=== PATIENT | female | born 1995 | race Caucasian/White ===

== ENCOUNTER 2018-10-03 19:04 | Emergency (ER) | payer SELFPAY ==
--- NOTE | 2018-10-03 19:07 | ERD ---
ER Documentation Chief Complaint Chief Complaint Opiate overdose HPI This is a 23-year-old female with a history of polysubstance abuse, opiate abuse with previous episodes of opiate overdose, cocaine abuse who is presenting with an opiate overdose. It is unclear if the patient used heroin or fentanyl. The patient became unresponsive and had an ambulance was called. EMS pulled the patient out of the car. She was given 2 doses of Narcan intranasally without response prior to inspector receiving arrival. Upon inspector receiving arrival, an IV was initiated and the patient was given Narcan through the IV after which she woke up. She was irritated and agitated and did not want to come to the hospital. Upon arrival to the ER, she demanded to leave. The patient is alert and oriented x3. The patient refused to answer any review of system questions. ROS All systems reviewed and are negative except as per history of present illness. Medications Home Meds Active Scripts Naloxone HCl nasal spray (Narcan 4 mg/0.1 mL nasal) 4 Mg [place], 4 MG NS .Q2-3MIN for OPIOID OVERDOSE, #2 SPRAY 0 Refills [place] 0.1 mL into one nostril. Repeat with second device into other nostril after 2-3 minutes if no or minimal response Prov:KEYLA JORGENSEN MD 10/03/18 PMhx/Soc Medical and Surgical Hx: pt denies Surgical Hx History of Surgery: No Hx Neurological Disorder: No Hx Respiratory Disorders: No Hx Cardiac Disorders: No Hx Psychiatric Problems: No Hx Miscellaneous Medical Probl: No Hx Alcohol Use: Yes Hx Substance Use: Yes Smoking Status: Unknown if ever smoked FmHx Patient refused to answer family history questions Physical Exam Physical Exam Objective: Patient refused vital sign assessment Const: No apparent distress, well-developed, well-nourished Head: Normocephalic, Atraumatic Eyes: Normal Conjunctiva. ENT: Normal External Ears, Nose and Mouth. Neck: No meningismus. Resp: Symmetric chest wall capone, no audible wheezes Cardio: Deferred Abd: Non distended Skin: No petechiae or rashes Back: Deferred Ext: No cyanosis, or edema Neur: Awake and alert. No facial droop. Normal strength and sensation. Psych: Agitated Procedures/MDM MDM The patient's presentation warrants further investigation. Previous medical records, if available, were reviewed. The patient had an appropriate response to Narcan. I did do a limited observational exam, as the patient refused a more detailed exam. The patient is agitated, but she is fully awake, alert and oriented x3. She is agitated and refuses any further assessment. She has the right to refusal. The patient understands that Narcan has a shorter half-life than other opiate medications, and that is dangerous to leave the emergency department without being observed for at least 2-3 hours. The patient thinks the paramedics receiving her life, but she does not care if she returns to an overdose state. She understands that she could lose the ability to breathe on her own. She understands that she would be at risk for anoxic brain injury, hemodynamic compromise, cardiac arrest and . Despite these risks, the patient chose to leave AGAINST MEDICAL ADVICE. The patient may return to the emergency department at any time for reassessment. The patient reports anxiousness. She requested a refill of her Klonopin prescription. I will not refill this medication as I do not feel that it is safe for her to be on this medication in the setting of opiate abuse. Prescriptions: Narcan. The patient is at risk of overdose in the future. Disclaimer: Inadvertent spelling and grammatical errors are likely due to EHR/dictation software use and do not reflect on the overall quality of patient care. Note that the electronic time recorded on this note does not necessarily reflect the actual time of the patient encounter. Departure Diagnosis: Primary Impression: Heroin overdose Encounter type: initial encounter Injury intent: accidental or unintentional Qualified Codes: T40.1X1A - Poisoning by heroin, accidental (unintentional), initial encounter Additional Impressions: Cocaine overdose Encounter type: initial encounter Injury intent: accidental or unintentional Qualified Codes: T40.5X1A - Poisoning by cocaine, accidental (unintentional), initial encounter Left against medical advice Condition: Serious KYELA JORGENSEN MD Oct 03, 2018 19:07
[2018-10-03] MEDS ORDERED: NALO4SPR NS (19:08)
== END 2018-10-03 19:12 | disposition left against medical advice (07) ==
LOC: E/R 19:04
DX: T40.1X1A Poisoning by heroin, accidental (unintentional), initial encounter (principal); T40.5X1A Poisoning by cocaine, accidental (unintentional), initial encounter
CPT/HCPCS: 99283